=== PATIENT | female | born 1965 | race Caucasian/White ===

== ENCOUNTER 2020-08-10 14:35 | Outpatient (CLI) | payer OTHER ==
--- NOTE | 2020-08-10 15:13 | XRAY Report ---
PROCEDURE: Knee 3 View LT INDICATIONS: LEFT KNEE PAIN TECHNIQUE: 3 views of the left knee(s) were acquired. COMPARISON: None. FINDINGS: Bones: No fractures or dislocations but there is evidence of a prior significant injury to the dista l femoral condyle laterally on the left. Irregular joint margination is present, indicating some form of osteochondral injury/defect. Degenerative osteoarthritic change is present at the lateral compart ment more prominently involving the femoral articular surface in the proximal tibial articular surfac e. No suspicious bony lesions. Soft tissues: No joint effusion. No suspicious soft tissue calcifications. IMPRESSION: Old trauma is presumed at the lateral compartment of the left knee. This significantly i nvolves the lower aspect of the lateral femoral condyle where what appears to be an osteochondral def ect and secondary degenerative osteoarthritic changes present. Minimal degenerative change at the lat eral tibial plateau noted. No loose body seen. Please correlate clinically for prior studies and hist ory of old trauma. Reviewed by: Daniel Narayan MD on 08/10/2020 2:12 PM VICTORIANO Approved by: Daniel Narayan MD on 08/10/2020 2:12 PM AKMASSIEL Station ID: [id number]
== END 2020-08-10 14:36 | disposition home or self-care (01) ==
LOC: DI.S 14:35
PROVIDERS: ATTEND Physician Assistant Medical
DX: M17.12 Unilateral primary osteoarthritis, left knee (principal)

== ENCOUNTER 2021-12-01 14:26 | Outpatient (CLI) | payer OTHER | END 2021-12-01 14:27 | disposition home or self-care (01) | LOC: RT 14:26 | PROVIDERS: ATTEND Physician Assistant | DX: Z01.810 Encounter for preprocedural cardiovascular examination (principal) | CPT/HCPCS: 93005 ==

== ENCOUNTER 2023-02-06 08:00 | Outpatient (CLI) | payer OTHER ==
--- NOTE | 2023-02-07 18:46 | XRAY Report ---
PROCEDURE: Hand 3 View LT INDICATIONS: LEFT HAND PAIN TECHNIQUE: 3 views of the hand(s) acquired. COMPARISON: None. FINDINGS: Bones: There is a minimally displaced fracture through the distal left fifth metacarpal diaphysis. Soft tissues: No suspicious soft tissue calcifications or masses. IMPRESSION: Minimally displaced fifth metacarpal fracture. Reviewed by: Jennie Hills MD on 02/07/2023 6:45 PM PST Approved by: Jennie Hills MD on 02/07/2023 6:45 PM PST Station ID: [id number]
== END 2023-02-06 23:59 | disposition home or self-care (01) ==
LOC: DI.S 08:00
PROVIDERS: ATTEND Registered Nurse
DX: S62.397A Other fracture of fifth metacarpal bone, left hand, initial encounter for closed fracture (principal)

== ENCOUNTER 2023-02-15 10:44 | Outpatient (CLI) | payer OTHER ==
--- NOTE | 2023-02-15 14:09 | SLEEP CARE CONSULTATION ---
Information from patient questionnaire entered by Shon Weinberg. I have reviewed and concur with the information entered by Shon Weinberg. This document represents the service I personally performed and the decisions made by me, Julio Downing MD, [facility]. History of Present Illness Service Date and Time: 02/15/2023 1044 Reason for Visit: New patient Chief Complaint: reports: Snoring, Other (ANXIETY) Date of Onset: 20+YRS Usual bedtime: 10PM Time it takes to fall asleep: 20MIN-HRS Snores at night: Yes Observed to quit breathing while asleep: No Sleeps alone due to snoring: No Number of times waking at night: 2 Reasons for waking at night: reports: Bathroom, Other (UNKNOWN) Toss, Turn, or Twitch while sleeping: No Recalls having dreams: No Usually gets out of bed at: 530AM Feels refreshed in the morning: Yes Morning headache: No Sleepy or fatigued during the day: Yes Ever fallen asleep while driving: No Takes day naps: No Dreams during day naps: No Prior sleep studies: Yes Additional HPI information: I had the pleasure of seeing Ms. Muro today regarding obstructive sleep apnea-hypopnea. As you know, she is a 57-year-old lady who was originally diagnosed with the sleep-disordered breathing here in 2006. The AHI was 7.8. She went with positioning therapy. In 2013, she had another in-laboratory polysomnography that showed an AHI of 10.2. She was prescribed a CPAP device set at 4 cmH2O. She uses the Respironics System One CPAP every night and all night. It is set at 4 cmH2O. The compliance data show usage in 90 out of the past 90 nights, averaging 7.2 hours a night. The residual AHI is 3.3 and average air leak is 0 L/minute. She wears a Respironics Wisp nasal mask. She gets his supplies from [facility]. She finds the treatment beneficial. However, according to her children, she continues to snore through the CPAP. Her weight has gone up 10 lbs. - Parasomnia Symptoms Ever been unable to move upon waking from sleep: No Walks in sleep: No Talks in sleep: No Ever acted out dreams in sleep: No Ever felt weak in the knees when startled or emotional: No Bothered by creepy, crawly, restless sensations in legs: No Problems with memory or concentration: Yes Subjective Initial [place] Sleepiness Scale score: 5 (02/15/23) Past Medical History Past Medical History: reports: Anxiety, Asthma Social History The patient's occupation is a TEACHER. Patient is and lives in . Have you smoked in the past 12 months: No Alcohol use: No Caffeine use: No Family History Family history of sleep disordered breathing: Yes Family Hx Sleep Apnea: Mother: Sleep apnea - Untreated, Sibling: Sleep apnea - Treated, Sleep apnea - Untreated Allergies and Home Medications Known drug allergies: No Drug allergies reviewed: Yes Home medication list reviewed: Yes Review of Systems Weight gain over past 5 years: 12 Cardiovascular: denies: high blood pressure, palpitations, chest pain, irregular heart rate or pulse, leg or foot swelling, have to sleep sitting up, other Respiratory: denies: shortness of breath, wheeze, sputum production, chronic cough, other Gastrointestinal: denies: heartburn, difficulty swallowing, nausea, vomitting, diarrhea, abdominal pain, other Urinary: denies: incontinence, frequency, urgency, impotence, other Neurological: denies: headaches, seizure, head trauma, disorientation, speech dysfunction, gait or balance problems, fainting or unconsciousness, other Psychiatric: reports: anxiety Ear/Nose/Throat: reports: wisdom teeth removed Endocrine: denies: thyroid disease, history of goiter, sluggishness, too hot or cold, excessive thirst, increased appetite, increased urination, unexplained weakness, other Musculoskeletal: denies: joint pain, neck pain, back pain, joint swelling, muscle pain or cramping, mobility problems, other Immunologic: reports: allergies to food or environment Physical Exam Vital signs obtained and entered by: SHON Powell MA Blood Pressure: 117/71 (LEFT ARM) Cuff size: regular Heart Rate: 73 O2 Saturation: 98 Height: 5 ft 6 in Weight: 166 lb 12.8 oz Body Mass Index: 26.9 BMI Classification: Overweight Neck circumference: 14 Mood/affect: On her phone most of the time Uvula visualization: 25% Mallampati Class III Chin and jaw: normal size and position Extremities: no edema or clubbing Neurologic: intact Impression and Plan IMPRESSION: 1. Obstructive Sleep Apnea-Hypopnea Syndrome, mild, as previously diagnosed. The patient has been using her CPAP consistently since 2014. The current pressure setting appears effective and comfortable. However, she still snores. Because the CPAP is much older than the useful life of 5 years, I will order the patient a new one and make it an autoCPAP set between 4 and 8 cmH2O. Plan: 1. Prescription made for an autoCPAP, heated humidifier, and related supplies. 2. Return for follow up after 2 months of using her new machine to make sure that the pressure range is effective and she does not snore through the CPAP. Counseling Topics: Weight control Follow up with Sleep Care in: 1-2 months Visit Type: In Office Other Participants: Other (mother) Time Spent with Patient (minutes): 15 Provider Statement: I spent 100% of the Face to Face Visit with the patient with greater than 50% spent counseling the patient and coordination of care.
[2023-02-15 14:16] VITALS: BP 117/71; O2SAT 98
== END 2023-02-15 10:45 | disposition home or self-care (01) ==
LOC: SC 10:44
PROVIDERS: ATTEND Internal Medicine Pulmonary Disease
DX: G47.33 Obstructive sleep apnea (adult) (pediatric) (principal); E66.3 Overweight; Z68.26 Body mass index [BMI] 26.0-26.9, adult
CPT/HCPCS: 99202; 99212

== ENCOUNTER 2023-04-30 08:00 | Outpatient (CLI) | payer OTHER ==
--- NOTE | 2023-04-30 15:12 | XRAY Report ---
PROCEDURE: Hip w/Pelvis 2-3V RT INDICATIONS: RIGHT HIP PAIN TECHNIQUE: 2 views of the hip were acquired. COMPARISON: None FINDINGS: Bones: Mild bilateral hip degenerative changes. Pubic symphysis and lumbosacral degenerative changes also seen. Soft tissues: No suspicious calcifications. Moderate fecal loading. IMPRESSION: No acute radiographic abnormality. If there is high concern for further derangement, consider MRI sonya luation. Reviewed by: Shay Mitchell MD on 04/30/2023 3:10 PM PST Approved by: Shay Mitchell MD on 04/30/2023 3:10 PM PST Station ID: [id number]
== END 2023-04-30 23:59 | disposition home or self-care (01) ==
LOC: DI.S 08:00
PROVIDERS: ATTEND Registered Nurse
DX: M25.551 Pain in right hip (principal)

== ENCOUNTER 2023-05-24 14:50 | Outpatient (CLI) | payer OTHER ==
--- NOTE | 2023-05-24 16:02 | SLEEP CARE CONSULTATION ---
Information from patient questionnaire entered by Shon Weinberg. I have reviewed and concur with the information entered by Shon Weinberg. This document represents the service I personally performed and the decisions made by me, Julio Downing MD, [facility]. History of Present Illness Service Date and Time: 05/24/2023 1450 Reason for follow up: three month (F/U) Equipment type: CPAP (RESMED) HPI additional information: Ms. Muro returned today for follow up of nasal CPAP therapy. She was diagnosed to have mild obstructive sleep apnea-hypopnea syndrome. The patient went to [facility] for the equipment and was fitted with a nasal mask. She reports using her new ResMed AirSense 11 nightly and all through the night. The compliance report shows usage in 60 nights out of the past 60 nights, averaging 7.2 hours a night. The > 4 hour compliance rate for the past 30 days is 100%. She complained of machine noises that developed after she has been using it for a while but no particular problem with the device such as soreness on the face, dry nose, epistaxis, nasal congestion or headache. She thinks that the pressure of 4 - 8 cmH2O is comfortable. On the CPAP therapy she notices improvement in her sleep quality, and that she wakes up feeling fresher in the morning and more awake/alert during the day. The [place] Sleepiness Scale score 6. The average residual AHI is 0.5; and air leak, 0.5 L/min. The 90th percentile pressure is 7.2 cmH2O. CPAP Compliance Data - Data Reviewed with Patient Average duration of nightly device use: 7HRS 10MINS Compliance rate %: 71 (02/19/23-05/19/23) Current pressure setting (cmH2O): 4-8 Average residual AHI: 0.5 Subjective Initial [place] Sleepiness Scale score: 6 (05/24/23) Allergies and Home Medications Drug allergies reviewed: Yes Home medication list reviewed: Yes Allergy and home medication list: Allergies No Known Drug Allergies Allergy (Verified 05/20/23 17:23) Review of Systems Review of systems same as previous: Yes (NO CHANGE) Physical Exam Vital signs obtained and entered by: SHON Powell MA Blood Pressure: 124/73 (LEFT ARM) Cuff size: regular Heart Rate: 71 O2 Saturation: 100 Height: 5 ft 6 in Weight: 163 lb 12.8 oz Body Mass Index: 26.4 BMI Classification: Overweight Impression and Plan IMPRESSION: 1. Obstructive Sleep Apnea-Hypopnea Syndrome, mild (AHI was 10.2 in 2014) with the patient doing well on nasal CPAP therapy. She has excellent compliance and significant clinical improvement. The current pressure appears effective and comfortable. Overall, she is very satisfied with treatment, and plans to continue with it long-term. No adjustment is necessary today. PLAN: 1. Continue with the autoCPAP set ta 4 - 8 cmH2O. 2. Bring the machine here if it still makes loud noises. 3. Return in one year for follow up or earlier if there is any problem with the treatment. Follow up with Sleep Care in: as needed Follow up with: PCP Visit Type: In Office Time Spent with Patient (minutes): 12 Provider Statement: I spent 100% of the Face to Face Visit with the patient with greater than 50% spent counseling the patient and coordination of care.
[2023-05-24 16:04] VITALS: BP 124/73; O2SAT 100
== END 2023-05-24 14:51 | disposition home or self-care (01) ==
LOC: SC 14:50
PROVIDERS: ATTEND Internal Medicine Pulmonary Disease
DX: G47.33 Obstructive sleep apnea (adult) (pediatric) (principal)
CPT/HCPCS: 99212